=== PATIENT | male | born 1970 | race African-American/Black ===

== ENCOUNTER 2021-10-16 14:08 | Emergency (ER) | payer MEDICARE, MEDICAID, SELFPAY ==
[2021-10-16] VITALS (9 sets, daily range): BP systolic 165–187; BP diastolic 89–116; PULSE 92–106; RESP 16–28; TEMP 35.2; O2SAT 96–98
--- NOTE | ~2021-10-16 | XR_ITS ---
EXAMINATION: XR chest 1V portable DATE: 10/16/2021 14:56 INDICATION: Shortness of breath. TECHNIQUE: A single frontal view of the chest was obtained. COMPARISON: Chest 2 views 09/13/2017 FINDINGS: The chest demonstrates clear lungs without pneumonia, pleural effusion, or pneumothorax. Th e heart size is normal. IMPRESSION: 1. No acute cardiopulmonary disease. Reviewed, dictated and finalized at location B.
--- NOTE | 2021-10-16 14:46 | ED.ASTHMA ---
HPI - Asthma General Chief Complaint: Shortness of Breath/Dyspnea Stated Complaint: gout Time Seen by Provider: 10/16/21 14:39 History of Present Illness HPI Narrative: pt here with sob, using inhaler, still smoking and ran out of bp medicaiton as well as gout medication at least 3 days ago, pt says usually gets steroid injection for his asthma but hasn't had yet this year. no new trauma to right knee but flare of gout due to being off meds. same spot right knee as always, came in with his signifiacnt other who I'm also seeing for issues. Related Data Allergies Allergy/AdvReac Type Severity Reaction Status Date / Time No Known Allergies Allergy Unverified 10/16/21 14:42 Review of Systems Constitutional: Comments: CONSTITUTIONAL: Denies fever, chills, or sweats. EYES: Denies visual changes, redness, or discharge. ENT: Denies rhinorrhea, congestion, sore throat, or otalgia. CARDIOVASCULAR: Denies chest pain, palpitations, or edema. RESPIRATORY: Denies cough but sob with asthma flare GASTROINTESTINAL: Denies abdominal pain, nausea, vomiting, or diarrhea. GENITOURINARY: Denies dysuria or hematuria. SKIN: Denies rash or itching. MUSCULOSKELETAL: Denies back pain, or myalgia. has right knee pain acute on chronic with gout no injury NEUROLOGIC: Denies headache, numbness, or weakness. PSYCHIATRIC: Denies anxiety or depression. Exam Const: Other: APPEARANCE: Well appearing, no pain in distress, well-nourished. Head normocephalic atraumtaic. EYES: PERRLA/EOMI, conjunctivae very clear. NOSE: Normal no drainage EARS:TMS clear Alie Escamilla, with good light reflex. THROAT: Pharynx clear, no exudate. NECK: Supple. No adenopathy, no masses. RESPIRATORY: Airway patent, repsirations nonlabored. Clear to auscultation bilaterally, no rales, rhonchi, wheezing. CARDIOVASCULAR: Regular rate and rhythm without murmurs rubs or gallops. ABDOMINAL: Soft, nontender, nondistended, no hepatosplenomegally MUSCULOSKELETAl: Moves all extremities. Strenght/ROM intact, No edema, No calf tenderness. mild tend right knee no swelling or deformity no s/s infection NEURO: Alert. Cranial nerves II through XII intact. Good gait. Good coordination SKIN:: Warm, dry. Normal Color PSYCHIATRIC: Normal affect/mood, normal interaction with parents. Course Course Emergency Course: felt better after second neb so stopped bp down to 19/94 Vital Signs Vital signs: Vital Signs Temperature 35.2 C L 10/16/21 14:34 Pulse Rate 103 H 10/16/21 14:34 Respiratory Rate 20 10/16/21 14:34 Blood Pressure 187/113 H 10/16/21 14:34 Pulse Oximetry 98 10/16/21 14:34 Oxygen Delivery Room Air 10/16/21 14:34 Temperature 35.2 C L 10/16/21 14:34 Pulse Rate 92 10/16/21 15:37 Respiratory Rate 20 10/16/21 15:37 Blood Pressure 170/114 H 10/16/21 15:17 Pulse Oximetry 96 10/16/21 14:40 Oxygen Delivery Room Air 10/16/21 14:40 MDM - Asthma Imaging Data Radiologist's impression: Impressions Chest X-Ray 10/16/21 14:57 IMPRESSION: 1. No acute cardiopulmonary disease. Discharge Plan Discharge Clinical Impression: Asthma with exacerbation, Acute gout of right knee, Chronic hypertension Patient Disposition: Home, Self-Care Condition: Improved Instructions: Antibiotic Form, Asthma (ED), Gout (ED), Chronic Hypertension (ED) Additional Instructions: take the prednisone and flexeril and naproxen and call your doc for refills on your chronic gout and blood pressure medication, return if new issues Prescriptions: New naproxen 500 mg tablet 500 mg PO BID Qty: 10 0RF prednisone 20 mg tablet 20 mg PO DAILY Qty: 5 0RF cyclobenzaprine 10 mg tablet 10 mg PO TID Qty: 15 0RF Follow-up/Referrals: Wanda,TOMÁS Albarado [Non-Staff] -
[2021-10-16] MEDS: ONDANSETRON HCL ODT 4 MG TABLET PO (14:59)
[2021-10-16] MEDS: HYDROcodone/acetaminophen (*CRX) 5-325 MG TABLET 1 TAB PO (14:59)
[2021-10-16] MEDS: hydrALAZINE HCL 20 MG/ML VIAL IM (15:00)
[2021-10-16] MEDS: IPRATROPIUM BR 0.02% INH SOLN 0.5 MG/2.5 ML VIAL INHALATION (15:01)
[2021-10-16] MEDS: ALBUTEROL SULFATE NEB 2.5 MG/3 ML INH 5 MG INHALATION ×2 (15:02→15:31)
== END 2021-10-16 16:32 | disposition home or self-care (01) ==
PROVIDERS: Emergency Provider Emergency Medicine
DX: J45.901 Unspecified asthma with (acute) exacerbation (principal); M10.9 Gout, unspecified; I10 Essential (primary) hypertension
CPT/HCPCS: 71045; 94640; 96372; 99284; A9270; J0360; J1100

== ENCOUNTER 2023-10-16 11:12 | Emergency (ER) | payer OTHER, MEDICARE, MEDICAID, SELFPAY ==
[2023-10-16] VITALS (13 sets, daily range): BP systolic 112–133; BP diastolic 71–95; PULSE 73–84; RESP 15–22; TEMP 35.4; O2SAT 95–99
--- NOTE | ~2023-10-16 | XR_ITS ---
EXAMINATION: XR chest 2V 10/16/2023 12:04 INDICATION: Chest pain. Recent VT. PROCEDURE: 2 view chest COMPARISON: 10/16/2021 FINDINGS: The lungs are clear. The cardiomediastinal silhouette is within normal limits. There are no pleural effusions. There is no pneumothorax suspected. There are multiple external devices overl marvin the lower chest. There is mild levoscoliosis of the thoracic spine. Mild thoracic spondylosis. IMPRESSION: 1: NO ACUTE CARDIOPULMONARY DISEASE. Reviewed, dictated and finalized at location B.
--- NOTE | 2023-10-16 11:20 | ECG_ITS ---
Test Date: 2023-10-16 11:21:02 Measurements Intervals [place] Rate: 84 P: 70 MI: 154 QRS: 8 QRSD: 65 T: 53 QT: 365 QTc: 434 Interpretive Statements SINUS RHYTHM NONSPECIFIC T-WAVE ABNORMALITY No previous ECG available for comparison Electronically Signed On 10-16-2023 12:47:23 CDT by Viral Lockhart M.D.
[2023-10-16 11:44] LABS: Basophils Percent Auto 0.6 % (0.2-1.2); Eosinophils Absolute Auto 0.1 K/mm3 (0-0.3); Eosinophils Percent Auto 1.1 % (0-4.4); Hematocrit 42.1 % (42.0-52.0); Hemoglobin 13.6 g/dL (14.0-18.0); Immature Granulocyte Absolute 0.16 K/mm3 (0.00-0.031); Immature Granulocyte Percent A 2.9 % (0-0.5); Lymphocytes Percent Auto 27.5 % (18.3-44.2); Mean Corpuscular HGB Conc 32.3 g/dl (32-36); Mean Corpuscular Hemoglobin 27.4 pg (26-34); Mean Corpuscular Volume 84.9 fl (80-100); Mean Platelet Volume 10.8 fl (7.4-10.4); Monocytes Absolute Auto 0.7 K/mm3 (0.1-0.6); Monocytes Percent Auto 12.8 % (2.6-8.5); Neutrophils Percent Auto 55.1 % (45.5-73.1); Platelet Count Result 236 k/mm3 (150-375); Red Blood Count 4.96 M/mm3 (4.6-6.20); Red Cell Distribution Width 14.5 % (11.5-14.5); White Blood Count 5.5 K/mm3 (4.5-10.0)
[2023-10-16 11:52] LABS: Alanine Aminotransferase 20 U/L (6-50); Albumin Level 4.3 g/dL (3.5-5.1); Alkaline Phosphatase 64 U/L (38-126); Anion Gap 8 mmol/L (4-12); Aspartate Amino Transferase 20 U/L (17-59); Bilirubin,Total 0.5 mg/dL (0.2-1.3); Blood Urea Nitrogen 17 mg/dL (9-20); Calcium 9.1 mg/dL (8.4-10.2); Carbon Dioxide 33 mmol/L (22-30); Chloride 98 mmol/L (98-107); Estimated CRCL calculation 82 ml/min; Estimated Glomerular Filt Rate > 60; Glucose 101 mg/dL (65-110); Lipase 87 U/L (23-300); Potassium 3.7 mmol/L (3.4-5.0); Sodium 139 mmol/L (137-145)
[2023-10-16 12:04] LABS: INR 0.9; Prothrombin Time 12.2 Seconds (11.1-14.7)
[2023-10-16 12:04] LABS: Troponin I 0.023 ng/mL (0.000-0.034)
[2023-10-16 12:05] LABS: Partial Thromboplastin Time 27.1 Seconds (22.3-36.8)
--- NOTE | 2023-10-16 12:43 | PC.NURSE ---
Called to lab for time frame on BNP at this time.
[2023-10-16 12:56] LABS: NT Pro B Type Natriuretic Pept 163 pg/mL (19.9-100)
--- NOTE | 2023-10-16 15:01 | ED.CHESTPAIN ---
HPI - Chest Pain General Chief Complaint: Chest Pain Stated Complaint: chest pain Time Seen by Provider: 10/16/23 11:20 Source: patient Mode of arrival: EMS Limitations: no limitations History of Present Illness HPI narrative: 53-year-old with history of cardiomyopathy, substance abuse, on life vest here with the complaints of [place] chest pain for past 1 hour. Patient states the pain is mid central radiates to the right side of his chest. He denies any shortness of breath, nausea or diaphoresis. Patient states that he was discharged from [facility] to the shelter few days ago. No previous history of CAD. Patient was given aspirin and nitro EN route to the hospital. Patient states that nitroglycerin tablet did not make any like she is in pain MD complaint: chest pain Onset (ago): hour(s) (1) Timing of current episode: constant Prior episodes: Yes Onset: during rest Pain location: left chest and right chest Severity: severe Quality: sharp Relieving factors: nothing Risk Factors Coronary artery disease risk factors: none Related Data Allergies Allergy/AdvReac Type Severity Reaction Status Date / Time No Known Allergies Allergy Unverified 10/16/21 14:42 Review of Systems Review of Systems: All systems reviewed & are unremarkable except as noted in HPI and below Constitutional: Constitutional: Reports no additional constitutional complaints Eyes: Eyes: Reports no additional eye complaints ENT: Reports system reviewed and no additional complaints, except as documented Cardiovascular: Cardiovascular: Reports as per HPI Respiratory: Respiratory: Reports no additional respiratory complaints Gastrointestinal: Gastrointestinal: Reports no additional gastrointestinal complaints Musculoskeletal: Musculoskeletal: Reports no additional musculoskeletal complaints Neurologic: Reports system reviewed and no additional complaints, except as documented Exam Narrative: GENERAL: Well-appearing, well-nourished, and in no acute distress. HEAD: Normocephalic, atraumatic. EYES: PERRLA and EOMI. ENT: Nares clear, no rhinorrhea or epistaxis. Mucous membranes moist. NECK: Supple. CHEST: Clear to auscultation. No respiratory distress. HEART: Regular rate and rhythm. No murmur heard. Normal peripheral pulses. ABDOMEN: Soft, nontender, nondistended, normal active bowel sounds. EXTREMITIES: Normal range of motion. No edema. SKIN: Warm, dry, no rash. NEURO: No focal deficits. Alert and oriented x3. PSYCH: Normal mood and affect. Course Course Emergency Course: Patient comfortably sitting on the stretcher in no discomfort his pain has much subsided. I did inform him about his lab work EKG and chest x-ray findings. He feels comfortable going back to the shelter. 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 Vital Signs Vital signs: Vital Signs Temperature 35.4 C L 10/16/23 11:13 Pulse Rate 82 10/16/23 11:13 Respiratory Rate 18 10/16/23 11:13 Blood Pressure 121/85 10/16/23 11:13 Pulse Oximetry 98 10/16/23 11:13 Oxygen Delivery Nasal Cannula 10/16/23 11:13 Oxygen Flow Rate 2 10/16/23 11:13 Temperature 35.4 C L 10/16/23 11:13 Pulse Rate 79 10/16/23 14:30 Respiratory Rate 17 10/16/23 14:30 Blood Pressure 124/89 10/16/23 14:30 Pulse Oximetry 97 10/16/23 14:30 Oxygen Delivery Room Air 10/16/23 12:45 Oxygen Flow Rate 2 10/16/23 11:13 MDM - Chest Pain Differential Diagnosis Differential diagnosis: Likely pneumothorax, unstable angina pectoris and atypical chest pain Lab Data Attestation: I reviewed the patient's lab results. 10/16/23 11:30 10/16/23 11:30 Labs: Lab Results 10/16/23 10/16/23 10/16/23 Range/Units 11:30 11:31 14:05 WBC 5.5 (4.5-10.0) K/mm3 RBC 4.96 (4.6-6.20) M/mm3 Hgb 13.6 L (14.0-18.0) g/dL Hct 42.1 (42.0-52.0) % MCV 84.9 (80-100) fl MCH 27.4 (26-34)
== END 2023-10-16 15:18 ==
PROVIDERS: Emergency Provider Family Medicine
DX: R07.9 Chest pain, unspecified (principal)
CPT/HCPCS: 36415; 71046; 80053; 83690; 83880; 84484; 85025; 85610; 85730; 93005; 99284